=== PATIENT | female | born 1970 | race Caucasian/White ===

== ENCOUNTER 2017-06-28 12:04 | Emergency (ER) | payer BC, OTHER ==
[2017-06-28 12:36] VITALS: BMI 22.3
--- NOTE | 2017-06-28 13:20 | PDOC ---
History of Present Illness - General Chief Complaint: Vaginal Bleeding Stated Complaint: VAGINAL BLEEDING Time Seen by Provider: 06/28/17 13:02 History Source: Patient - History of Present Illness Initial Comments: 06/28/17 13:33 3 week h/o vaginal bleed Patient is a 46 y.o. female who presents with a menstrual period of 3 weeks duration. Patient states she is using 2-3 pads daily and her menstrual periods are irregular, occurring every 2-3 months. Patient notes she has a h/o recent uterine cyst removal at which time two small fibroids were visualized. 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 Patient denies any palpitations, lightheadedness, shortness of breath or chest pain. Patient notes she splits her time between [place] and [place] and she wishes to follow up with her email designer in [place]. Past History - Past Medical History Allergies/Adverse Reactions: Allergies Allergy/AdvReac Type Severity Reaction Status Date / Time No Known Allergies Allergy Verified 06/28/17 12:32 Home Medications: Ambulatory Orders Medroxyprogesterone Acetate [Provera] 5 mg PO BID #14 tablet 06/28/17 Other medical history: DENIES - Immunization History Immunization Up to Date: Yes - Suicide/Smoking/Psychosocial Hx Smoking Status: No Smoking History: Never smoked Have you smoked in the past 12 months: No Number of Cigarettes Smoked Daily: 0 Information on smoking cessation initiated: No Hx Alcohol Use: No Drug/Substance Use Hx: No Substance Use Type: None *Physical Exam - Vital Signs Last Vital Signs Temp Pulse Resp BP Pulse Ox 98.1 F 70 16 121/76 100 06/28/17 12:33 06/28/17 12:33 06/28/17 12:33 06/28/17 12:33 06/28/17 12:33 - Physical Exam General Appearance: Yes: Nourished, Appropriately Dressed Neck: positive: Trachea midline, Supple Respiratory/Chest: positive: Lungs Clear, Normal Breath Sounds Cardiovascular: positive: Regular Rate, S1, S2 Female Pelvic Exam: positive: cervical os closed, vaginal bleeding (bright ) Gastrointestinal/Abdominal: positive: Soft ED Treatment Course - LABORATORY CBC & Chemistry Diagram: 06/28/17 14:06 06/28/17 14:06 Medical Decision Making - Medical Decision Making 06/28/17 14:13 Patient is a 46 y.o. female who presents with 3 week h/o painless vaginal bleed. Initial DDX includes Uterine Fibroids vs. Endometriosis vs. Spontaneous (less likely) PLAN: 1. CBC, CMP 2. UA/Urine 3. Transvaginal U/S 06/28/17 15:49 Transvaginal U/S shows 3.3 cm R ovarian cyst, no fibroids with 1.2 cm thickening of endometrial lining. email designer Dr. Bradford - agrees with recommendation of Depo (5 mg BID for 14 days) and outpatient follow-up. Patient discharged with prescription and referral to Dr. Bradford. *DC/Admit/Observation/Transfer Diagnosis at time of Disposition: Vagina bleeding - Discharge Dispostion Admit: No - Prescriptions Prescriptions: Medroxyprogesterone Acetate [Provera] 5 mg PO BID #14 tablet - Referrals Referrals: Paul Bradford MD [Staff Physician] - - Patient Instructions Additional Instructions: Please take Depo (5 mg) twice daily for 14 day and follow up with your email designer within 2-3 weeks or the referral provided to Dr. Bradford. Please return to the Emergency Department for any worsening or concerning symptoms.
[2017-06-28] MEDS ORDERED: SODIUM CHLORIDE 0.9% 1000 ML INFUS.BAG IV ONE (13:25)
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
[2017-06-28 14:15] LABS: BASOPHIL 0.5 % (0-2.0); EOSINOPHIL 2.8 % (0-4.5); MCH 30.8 pg (25.7-33.7); MCHC 33.9 g/dl (32.0-36.0); MEAN CELL VOLUME 90.7 fl (80-96); MEAN PLT VOLUME 7.8 fl (7.5-11.1); NEUTROPHILS 50.1 % (42.8-82.8); PLATELET COUNT 252 K/MM3 (134-434); RDW 13.1 % (11.6-15.6); WHITE BLOOD COUNT 4.2 K/mm3 (4.0-10.0)
[2017-06-28 14:21] LABS: URINE APPEARANCE CLEAR; URINE BILIRUBIN NEGATIVE (NEGATIVE); URINE BLOOD 3+ (NEGATIVE); URINE COLOR LTYELLOW; URINE GLUCOSE (UA) NEGATIVE (NEGATIVE); URINE KETONE NEGATIVE (NEGATIVE); URINE NITRITE NEGATIVE (NEGATIVE); URINE PROTEIN NEGATIVE (NEGATIVE); URINE UROBILINOGEN NEGATIVE mg/dL (0.2-1.0)
[2017-06-28 14:31] LABS: URINE RBC 126 /hpf (0-3); URINE WBC 1 /hpf (3-5)
[2017-06-28 14:42] LABS: ANION GAP 8 (8-16); BILIRUBIN,TOTAL 0.8 mg/dL (0.2-1.0); CALCIUM 8.7 mg/dL (8.5-10.1); CO2 29 mmol/L (21-32); CREATININE 0.8 mg/dL (0.55-1.02); GLUCOSE,RANDOM 82 mg/dL (74-106); SGPT/ALT 17 U/L (12-78); TOT PROT 7.3 g/dl (6.4-8.2)
[2017-06-28 14:43] LABS: ALK PHOS 42 U/L (45-117); SGOT/AST 16 U/L (15-37)
[2017-06-28 16:29] VITALS: BP 114/74; PULSE 68; TEMP 98.2
[2017-06-28 17:45] LABS: URINE LEUK ESTERASE Negative (NEGATIVE)
== END 2017-06-28 16:29 | disposition home or self-care (01) ==
LOC: JER 12:04
PROC: 3E0337Z Introduction of Electrolytic and Water Balance Substance into Peripheral Vein, Percutaneous Approach (ICD-10-PCS; principal; 2017-06-28)
DX: N93.9 Abnormal uterine and vaginal bleeding, unspecified (principal)
CPT/HCPCS: 36415; 76830-TC; 80053; 81003; 81015; 84703; 85025; 99282-25